=== PATIENT | male | born 1965 | race American Indian/Alaskan Native ===

== ENCOUNTER 2020-10-06 14:01 | Emergency (ER) | payer OTHER ==
[2020-10-06 14:38] VITALS: BP 156/103
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
== END 2020-10-06 17:38 | disposition home or self-care (01) ==
LOC: ED 14:01
DX: M54.89 Other dorsalgia (principal); I10 Essential (primary) hypertension; Z98.890 Other specified postprocedural states; V89.2XXA Person injured in unspecified motor-vehicle accident, traffic, initial encounter; Y93.89 Activity, other specified; Y92.410 Unspecified street and highway as the place of occurrence of the external cause; Y99.8 Other external cause status
CPT/HCPCS: 99282